=== PATIENT | male | born 1970 | race Caucasian/White ===

== ENCOUNTER → 2017-10-07 | Outpatient (CLI) | payer BC ==
[2017-10-07 10:32] LABS: EOS # 0.1 (0.04-0.40); EOS % 1.7 % (0.0-4.0); HEMATOCRIT 45.6 % (42.0-52.0); HEMOGLOBIN 15.5 g/dL (13.5-18.0); LYMPH# 1.1 (1.50-4.00); MEAN CELL VOLUME 91 fl (78-100); MEAN CORPUSCULAR HEMOGLOBIN 31 pg (27-31); MEAN CORPUSCULAR HGB CONC 34 g/dL (33-37); MEAN PLATELET VOLUME 10.2 fl (7.4-10.4); MONO # 0.4 (0.20-0.80); NEU # 3.2 (1.40-6.50); PLATELET COUNT 201 K/mm3 (130-400); RED BLOOD COUNT 5.03 M/mm3 (4.20-5.60); RED CELL DISTRIBUTION WIDTH 11.6 % (11.5-14.5); WHITE BLOOD COUNT 4.7 K/mm3 (4.8-10.8)
[2017-10-07 10:45] LABS: ALBUMIN 4.4 g/dL (3.5-5.0); CALCIUM 9.5 mg/dL (8.4-10.2); POTASSIUM 4.7 mmol/L (3.6-5.0); TOTAL BILIRUBIN 0.8 mg/dL (0.2-1.3); TOTAL PROTEIN 7.4 g/dL (6.3-8.2)
== END ==
LOC: LAB 10:22
PROVIDERS: Family Medicine
DX: R10.31 Right lower quadrant pain (principal)

== ENCOUNTER → 2020-12-21 | Outpatient (CLI) | payer OTHER, BC | LOC: RAD 15:00 | DX: R51.9 Headache, unspecified (principal) ==

== ENCOUNTER → 2021-01-17 | Outpatient (CLI) | payer OTHER, BC | LOC: RAD 15:30 | DX: M19.011 Primary osteoarthritis, right shoulder (principal); M65.811 Other synovitis and tenosynovitis, right shoulder ==

== ENCOUNTER → 2021-03-11 | Outpatient (CLI) | payer OTHER, BC | LOC: RAD 10:52 | DX: M47.812 Spondylosis without myelopathy or radiculopathy, cervical region (principal); M48.02 Spinal stenosis, cervical region; M25.519 Pain in unspecified shoulder; V89.2XXA Person injured in unspecified motor-vehicle accident, traffic, initial encounter ==